=== PATIENT | female | born 1985 | race Two or more races ===

== ENCOUNTER 2022-05-26 19:02 | Emergency (ER) | payer SELFPAY ==
[~2022-05-26] VITALS: Ht 157.5 cm; Wt 80.0 kg
[2022-05-26 20:02] VITALS: BP 152/84
[2022-05-26] MEDS ORDERED: CEPH-509 PO (22:08)
== END 2022-05-26 22:22 | disposition home or self-care (01) ==
LOC: ER 19:02
DX: T19.2XXA Foreign body in vulva and vagina, initial encounter (principal); X58.XXXA Exposure to other specified factors, initial encounter; Y93.89 Activity, other specified; Y92.89 Other specified places as the place of occurrence of the external cause; Y99.8 Other external cause status